=== PATIENT | male | born 1945 | race Caucasian/White ===

== ENCOUNTER 2016-07-23 03:41 | Inpatient (IN) | payer OTHER, MEDICARE ==
[~2016-07-23] VITALS: Ht 175.3 cm; Wt 65.3 kg
--- NOTE | 2016-07-23 09:12 | Admission Core Measures ---
Admission Meds I reviewed the following Meds: Current Medications Sig/Anna Start time Last Medication Dose Stop Time Status Admin Acetaminophen 975 MG ONCE 07/23 0000 NR (Tylenol) 07/23 2358 Cefazolin Sodium 2,000 MG ONCE 07/23 NR (Kefzol-Ancef Inj) 07/23 2358 Oxycodone HCl 10 MG ONCE 07/23 0000 NR (Roxicodone) 07/23 2358 Acute Coronary Syndrome Inclusion Criteria ACS Diagnosis No Inpatient Core Measures LDL Reminder: If No, please order W/I first 24hr of stay Congestive Heart Failure Inclusion Criteria CHF Diagnosis No Cerebrovascular accident Inclusion Criteria CVA/TIA Diagnosis No Inpatient Core Measures Bedside Swallow Eval Reminder: If BSE failed, place ST order Antithrombotic Reminder: Order Antithrombotic Medication by end of day 2 Antithrombotic Reminder: Document Reason Antithrombotic Not ordered by end of day 2 AFIB/Flutter Reminder: If Present, add to problem list AFIB/Flutter Reminder: Order Anticoag Medication for pts with AFIB/Flutter Atherosclerosis Reminder: If Present, add to problem list LDL Reminder: If No, please order W/I first 24hr of stay PT Order Reminder: If No, please order Venous thromboembolism Inpatient Core Measures VTE Risk Factors: Age > 40, Surgery [facility] prophylaxis d/t No contraindications No VTE Pharm Prophylaxis d/t No contraindications Inclusion Criteria - Per Current guidelines, there needs to be overlap - treatment for the first 5 days of Warfarin therapy. - Parenteral Anticoagulation (IV or SC) needs to be - given along with Warfarin therapy. VTE Diagnosis No VTE Type NONE VTE Confirmed by (Test) NONE Problem List As ranked by this Provider includes Assessment & Plan 1. Status post total hip replacement, right
--- NOTE | 2016-07-23 09:15 | Surg Short-stay <48hrs Dis Sum ---
Visit Information Visit Dates Admission Date: 07/23/16 Discharge Date: 07/23/16 Surgical Short Stay DC Summary Admission Diagnosis: Hip pain Final Diagnosis: s/p R THR Procedure(s): R THR - see operative report Summary/Significant Findings: Pt underwent a right thr by Dr Becerra on 07/23. He tolerated the procedure well and was brought to the PACU in stable condition. He was able to void spontaneously, his pain was well controlled with oral pain medication and he was working with PT. He was cleared by PT for discharge. Condition at Discharge: stable Discharge Disposition: home or self care Discharge instructions provided to patient/family: Yes Post discharge follow-up plan: Keep scheduled appointment with Dr Becerra. Call sooner if needed.
[2016-07-23] MEDS ORDERED: DILAUDID2 M1 PO (09:17)
[2016-07-23] MEDS ORDERED: ASPIRIN EC325 M2 PO (09:17)
[2016-07-23] MEDS ORDERED: COLACE100 M1 PO (09:17)
[2016-07-23] MEDS ORDERED: MS CONTIN15 M2 PO (09:17)
[2016-07-23] MEDS ORDERED: MIRALAX17 G1 PO (09:17)
--- NOTE | 2016-07-23 09:19 | Patient Discharge Instructions ---
Discharge Instructions General Discharge Information You were seen/treated for: Hip pain You had these procedures: Total hip replacement Watch for these problems: temp>101, increased redness or drainage of wounds, inability to bear weight No bath, but you may shower: Yes Other wound care: Keep incision clean and dry. May shower, no bathing Diet Continue normal diet: Yes Activity Activity Self Limited: Yes Activity Limited to: Weight bear as tolerated Acute Coronary Syndrome Inclusion Criteria At DC or during hospital stay patient has or had the following: ACS DIAGNOSIS No Discharge Core Measures Meds if any: Prescribed or Continued at Discharge Meds if any: NOT Prescribed or Continued at Discharge Congestive Heart Failure Inclusion Criteria At DC or during hospital stay patient has or had the following: CHF DIAGNOSIS No Discharge Core Measures Meds if any: Prescribed or Continued at Discharge Meds if any: NOT Prescribed or Continued at Discharge Cerebrovascular accident Inclusion Criteria At DC or during hospital stay patient has or had the following: CVA/TIA Diagnosis No Discharge Core Measures Meds if any: Prescribed or Continued at Discharge Meds if any: NOT Prescribed or Continued at Discharge Venous thromboembolism Inclusion Criteria VTE Diagnosis No VTE Type NONE VTE Confirmed by (Test) NONE Discharge Core Measures - Per Current guidelines, there needs to be overlap - treatment for the first 5 days of Warfarin therapy. - If discharged on Warfarin prior to 5 days of - overlap therapy, the patient will need to be - assessed for post discharge needs including - *Post discharge parental anticoagulation - *Warfarin and/or parental anticoagulation education - *Follow up date to check INR post discharge At least 5 days overlap therapy as Inpatient No Meds if any: Prescribed or Continued at Discharge Note: Overlap Therapy is Warfarin and Anticoagulant Meds if any: NOT Prescribed or Continued at Discharge
--- NOTE | 2016-07-23 10:00 | RADIOLOGY REPORT ---
EXAMINATION: XR HIP, RIGHT CLINICAL INFORMATION: Status post right hip replacement. COMPARISON: None TECHNIQUE: Portable AP and crosstable lateral views of the right hip. FINDINGS: A total hip hip replacement hardware is in place and in satisfactory position. No evidence of associated osseous fracture. Expected postsurgical soft tissue edema and air are noted in the right gluteal region and proximal thigh. IMPRESSION: Expected postsurgical changes of right total hip arthroplasty with the hardware in the satisfactory position.
[2016-07-23 11:33] VITALS: BP 122/68
--- NOTE | 2016-07-23 11:41 | NUR ---
PT ARRIVED TO FLOOR AT 1105. AT BEDSIDE. PT AMBULATED WITH PT BUT RIGHT LEG STILL NUMB. PT SITTING IN CHAIR, DENIES ANY PAIN. RESINT COMFORTABLY. CHAIR ALARM ON, CALL LUCAS WITHIN REACH.
--- NOTE | 2016-07-23 13:20 | PN- Orthopedic ---
Subjective Subjective: Postop check Pt is now s/p R anterior total hip replacement. He expresses no major complaints. He experienced some residual LE numbness upon arrival to the [facility] floor, but this has since resolved. Otherwise pain is well controlled and he is tolerating po. No void as of yet. Denies DAVALOS, dizziness, CP, SOB. Objective Vital Signs and I&Os Vital Signs Date Time Temp Pulse Resp B/P B/P Pulse O2 O2 Flow FiO2 Mean Ox Delivery Rate 07/23 1133 97.2 63 18 122/68 99 Room Air Intake & Output 07/23 1600 07/23 0800 07/23 0000 07/22 1600 07/22 0800 07/22 0000 Intake Total Output Total Balance Patient 144 lb Weight Physical Exam: Gen.: Patient is awake and alert. He is sitting in the chair. No acute distress. Cardiac: Regular Pulmonary: Clear to auscultation bilaterally Extremities: The right anterior hip dressing is clean, dry, and intact. There is mild periincisional swelling, within expected limits. The thigh is soft and there is no ecchymosis or signs of hematoma. Lower extremity sensation is intact from the thighs down to the toes bilaterally. Strength of dorsiflexion and plantar flexion are 5 out of 5 bilaterally. No significant distal edema or calf tenderness are appreciated. Assessment/Plan Assessment/Plan Patient is a 71-year-old male who is now postoperative day #0 status post right anterior total hip replacement. He remains stable from a surgical standpoint Plan: -PT for mobilization. WBAT with rolling walker. Patient is awaiting evaluation for stairs. -Pain control with morphine or Po dilaudid. -Heplock IV after void. -Colace and miralax for bowel regimen. -ASA 325 bid for DVT ppx. Alps and Reyes's as well. -Ancef x 2 doses for prophylaxis. -Await void. -Okay to discharge home when cleared by PT and after void. Core Measures/Miscellaneous Venous Thromboembolism VTE Risk Factors: Age > 40, Surgery VTE Contraindications: No Contraindications VTE Diagnosis: No VTE Type: NONE VTE Confirmed by (Test): NONE Beta Stef Is Beta Stef a Home Med? No Antibiotics Is Patient on Antibiotics? Yes If Yes: prophylaxis
[2016-07-23 14:37] VITALS: BP 118/70
--- NOTE | 2016-07-23 16:49 | Operative Report ---
Operative/Inv Procedure Report Surgery Date: 07/23/16 Name of Procedure: Right total hip replacement Pre-Operative Diagnosis: Primary right hip DJD Post-Operative Diagnosis: Same Estimated Blood Loss: 250 Surgeon/[employer] Director: FARHAN DIXON,DORY Morrison Anesthesia: block Operative/Procedure Note Note: Description of Procedure: The patient was taken to the operating room and positively identified. After induction of spinal anesthesia and administration of appropriate pre-operative antibiotics, the patient was positioned supine on the operating room table and all bony prominences were well padded. After performing a surgical timeout, the right lower extremity was prepped and draped in the usual sterile fashion. A direct anterior approach was made to the right hip. The incision was carried sharply through superficial soft tissues to the level of the fascia. Meticulous hemostasis was maintained with Bovie electocautery. The fascia over the tensor fascia lazaro muscle was opened sharply and the interval between the TFL and the sartorius was entered bluntly taking care to stay lateral to the lateral femoral cutaneous nerve. Retractors were placed around the femoral neck and the pericapsular fat was identified. The ascending branches of the lateral femoral circumflex vessels were identified and carefully coagulated. The pericapsular fat and anterior capsule were then resected. A napkin ring osteotomy was performed and the femoral head was removed without difficulty. Attention was then turned to the acetabulum. After appropriate placement of retractors, the acetabulum was exposed. Soft tissue was cleaned from the acetabular margin and notch. Overhanging osteophytes were removed and the teardrop was exposed. The acetabulum was then sequentially reamed to accept a 58 mm [place] Tritanium hemispherical solid back shell. This was impacted into place in the appropriate position and fitted with a 36 mm Trident X3 zero degree polyethylene insert. Attention was then turned to the femur. After performing the appropriate ligament releases, the proximal femur was exposed. It was then sequentially broached to accept a size 6 [place] Anato stem. This was trialed for leg length and stability. The trial component was removed and the final component was impacted into place. The trunnion was carefully cleaned and fit with a 36 mm, + 2.5 Biolox delta ceramic femoral head. The hip was reduced and put through a full range of motion and found to be stable. The articular space was then irrigated with sterile saline. The periarticular soft tissues were infilitrated with Marcaine. The fascial layer was closed with interrupted #1 vicryl suture and the skin was re-approximated with interrupted 2 -0 vicryl. The skin was closed with a running 3-0 V-Lock suture. Steri-strips and a sterile dressing were applied. The patient was awakened and taken to the recovery room in satisfactory condition.
== END 2016-07-23 15:17 | disposition home health service (06) | DRG 470 ==
LOC: SDA 03:41 → ENRESERV 09:45 → 2NB 10:51 → ENPENDDIS 13:37 → 2NB 15:17
PROVIDERS: ADMIT Orthopaedic Surgery
PROC: 0SR904A Replacement of Right Hip Joint with Ceramic on Polyethylene Synthetic Substitute, Uncemented, Open Approach (ICD-10-PCS; principal; 2016-07-23)
DX: M16.11 Unilateral primary osteoarthritis, right hip (principal); K22.70 Barrett's esophagus without dysplasia; K21.9 Gastro-esophageal reflux disease without esophagitis
CPT/HCPCS: 2NBP; 73502-RT; 88304; 97110-GO; 97116-GO; 97161-GP; 97530-GO; J0690; J0735; J7042

== ENCOUNTER 2016-09-26 01:59 | Inpatient (IN) | payer OTHER, MEDICARE ==
[~2016-09-26] VITALS: Ht 172.7 cm; Wt 65.8 kg
[~2016-09-26 01:59] MED LIST: ASPIRIN EC325 M2 PO; COLACE100 M1 PO; DILAUDID2 M1 PO; MIRALAX17 G1 PO; MS CONTIN15 M2 PO
--- NOTE | 2016-09-26 07:20 | Admission Core Measures ---
Admission Meds I reviewed the following Meds: Current Medications Sig/Anna Start time Last Medication Dose Stop Time Status Admin Acetaminophen 975 MG ONCE 09/26 0000 NR (Tylenol) 09/26 2358 Cefazolin Sodium 2,000 MG ONCE 09/26 NR (Kefzol-Ancef Inj) 09/26 2358 Oxycodone HCl 10 MG ONCE 09/26 0000 NR (Roxicodone) 09/26 2358 Acute Coronary Syndrome Inclusion Criteria ACS Diagnosis No Inpatient Core Measures LDL Reminder: If No, please order W/I first 24hr of stay Congestive Heart Failure Inclusion Criteria CHF Diagnosis No Cerebrovascular accident Inclusion Criteria CVA/TIA Diagnosis No Inpatient Core Measures Bedside Swallow Eval Reminder: If BSE failed, place ST order Antithrombotic Reminder: Order Antithrombotic Medication by end of day 2 Antithrombotic Reminder: Document Reason Antithrombotic Not ordered by end of day 2 AFIB/Flutter Reminder: If Present, add to problem list AFIB/Flutter Reminder: Order Anticoag Medication for pts with AFIB/Flutter Atherosclerosis Reminder: If Present, add to problem list LDL Reminder: If No, please order W/I first 24hr of stay PT Order Reminder: If No, please order Venous thromboembolism Inpatient Core Measures VTE Risk Factors: [facility] prophylaxis d/t No contraindications No VTE Pharm Prophylaxis d/t No contraindications Inclusion Criteria - Per Current guidelines, there needs to be overlap - treatment for the first 5 days of Warfarin therapy. - Parenteral Anticoagulation (IV or SC) needs to be - given along with Warfarin therapy. VTE Diagnosis No VTE Type NONE VTE Confirmed by (Test) NONE Problem List As ranked by this Provider includes Assessment & Plan 1. Primary osteoarthritis of left hip HOME MEDS Home Med List Aspirin (Ecotrin*) 325 MG TABLET. 1 TAB PO DAILY PROPHO (Reported)
--- NOTE | 2016-09-26 10:16 | Surg Short-stay <48hrs Dis Sum ---
Visit Information Visit Dates Admission Date: 09/26/16 Discharge Date: 09/26/16 Surgical Short Stay DC Summary Admission Diagnosis: Primary unilateral osteoarthritis, left hip Final Diagnosis: same, s/p Total hip replacement, left Procedure(s): total hip replacement, left Summary/Significant Findings: Patient was admitted to the hospital for an elective total joint replacement. The procedure was tolerated well and patient was transferred to a general surgical floor. Diet was advanced and tolerated, and the patient voided spontaneously. The patient was evaluated and treated by physical therapy. At the time of hospital discharge, the vital signs were stable, neurovascular status was intact, and pain was controlled with the use of oral pain medications Condition at Discharge: stable Discharge Disposition: home health services Discharge instructions provided to patient/family: Yes Post discharge follow-up plan: Follow up with Dr. Becerra in 6 weeks from date of surgery. Please call his office to arrange and/or confirm this appointment.
[2016-09-26] MEDS ORDERED: ASPIRIN EC325 M2 PO (10:19)
[2016-09-26] MEDS ORDERED: PROTONIX20 M1 PO (10:19)
[2016-09-26] MEDS ORDERED: DILAUDID2 M1 PO (10:19)
[2016-09-26] MEDS ORDERED: MS CONTIN15 M2 PO (10:19)
[2016-09-26] MEDS ORDERED: COLACE100 M1 PO (10:19)
[2016-09-26] MEDS ORDERED: MIRALAX17 G1 PO (10:19)
--- NOTE | 2016-09-26 10:23 | Patient Discharge Instructions ---
Discharge Instructions General Discharge Information You were seen/treated for: Left hip pain You had these procedures: Total hip replacement, LEFT Watch for these problems: Increasing pain despite the use of pain medication Increasing redness, warmth or swelling Drainage of any type from incision Inability to bear weight on operative leg Persistent nausea and vomiting Fever greater than 101.5 degrees No bath, but you may shower: Yes Other wound care: Please keep wound clean and dry. No ointments or lotions of any type on or near incision at any time. No exceptions. Your dressing will be changed by your nurse on the second day after your surgery. Daily dry dressing changes are recommended each day thereafter. Do not soak your wound in a bath at any time until otherwise indicated by Dr. Becerra. You may shower, please dry wound immediately after shower with a clean towel. Special Instructions: Aspirin: You are taking this medication to help prevent blood clot formation. Please take with food to protect your stomach lining. Please take as directed. Protonix: Take this daily to protect your stomach lining while taking aspirin. Constipation: Pain medication can cause constipation. Dr. Becerra has recommended that you take Colace and miralax each day. You may discontinue this medication if you develop loose stool or diarrhea. If you wish to continue this medication, it is available over the counter. If you are unable to move your bowels after several days, if you are unable to pass gas and are developing bloating, nausea, or vomiting as a result, please contact your doctor. Diet Continue normal diet: Yes Activity Activity Limited to: Weight bear as tolerated Additional ACTIVITY Info: use assistive devices as needed Acute Coronary Syndrome Inclusion Criteria At DC or during hospital stay patient has or had the following: ACS DIAGNOSIS No Discharge Core Measures Meds if any: Prescribed or Continued at Discharge Meds if any: NOT Prescribed or Continued at Discharge Congestive Heart Failure Inclusion Criteria At DC or during hospital stay patient has or had the following: CHF DIAGNOSIS No Discharge Core Measures Meds if any: Prescribed or Continued at Discharge Meds if any: NOT Prescribed or Continued at Discharge Cerebrovascular accident Inclusion Criteria At DC or during hospital stay patient has or had the following: CVA/TIA Diagnosis No Discharge Core Measures Meds if any: Prescribed or Continued at Discharge Meds if any: NOT Prescribed or Continued at Discharge Venous thromboembolism Inclusion Criteria VTE Diagnosis No VTE Type NONE VTE Confirmed by (Test) NONE Discharge Core Measures - Per Current guidelines, there needs to be overlap - treatment for the first 5 days of Warfarin therapy. - If discharged on Warfarin prior to 5 days of - overlap therapy, the patient will need to be - assessed for post discharge needs including - *Post discharge parental anticoagulation - *Warfarin and/or parental anticoagulation education - *Follow up date to check INR post discharge At least 5 days overlap therapy as Inpatient No Meds if any: Prescribed or Continued at Discharge Note: Overlap Therapy is Warfarin and Anticoagulant Meds if any: NOT Prescribed or Continued at Discharge
--- NOTE | 2016-09-26 10:46 | RADIOLOGY REPORT ---
EXAMINATION: XR HIP, LEFT CLINICAL INFORMATION: Status post left hip replacement. COMPARISON: No relevant prior imaging available. TECHNIQUE: Two views of the left hip. FINDINGS: There are recent postoperative changes of a total left hip arthroplasty. Metallic components are intact and there is no dislocation. No evidence of periprosthetic fracture. There is soft tissue gas and swelling related to recent surgery. Visualized portions of the left hemipelvis reveal no abnormal finding. IMPRESSION: Expected postoperative changes of a left total hip arthroplasty. Otherwise no abnormal finding.
[2016-09-26 13:48] VITALS: BP 110/70
--- NOTE | 2016-09-26 13:50 | NUR ---
ARRIVED TO FLOOR VIA STRETCHER. A & O X 3. ON RA. VSS. +CMS. DENIES PAIN. DSG INTACT TO LEFT HIP. ORIENTED TO CALL SYSTEM.
--- NOTE | 2016-09-26 15:10 | PN- Orthopedic ---
Subjective Subjective: POST-OP NOTE: No complaints. Reports pain controlled. Tolerating diet. No nausea. Evaluated and cleared for home by PT. Denies dizziness. No shortness of breath. No chest pains. Voided several times post-op. Objective Vital Signs and I&Os Vital Signs Date Time Temp Pulse Resp B/P B/P Pulse O2 O2 Flow FiO2 Mean Ox Delivery Rate 09/26 1348 98.1 70 16 110/70 97 Room Air Intake & Output 09/26 1600 09/26 0800 09/26 0000 09/25 1600 09/25 0800 09/25 0000 Intake Total 240 Output Total 300 Balance -60 Intake, Oral 240 Output, Urine 300 Patient 145 lb Weight Weight Reported by Patient Measurement Method Physical Exam: General - alert & oriented x 3. comfortable. no acute distress. Lungs - clear bilaterally. no w/r/r. Cardiac - s1s2. reg. Abdomen - soft. nontender. Extremities - warm bilaterally. no c/c/e. left hip dressing c/d/i. no hematoma. no drains. nvi. calves soft and nontender b/l. Current Medications: Current Medications Sig/Anna Start time Last Medication Dose Route Stop Time Status Admin Acetaminophen 650 MG Q4P PRN 09/26 1345 AC PO Acetaminophen 0 .STK-MED ONE 09/26 0720 DC PO Acetaminophen 975 MG ONCE 09/26 0000 DC PO 09/26 2359 Aspirin 325 MG BID 09/26 2200 AC PO Cefazolin Sodium 2 GM IQ8 09/26 1600 AC N/A 1 UNIT IV 09/27 0029 Cefazolin Sodium 2,000 MG ONCE 09/26 0000 DC IV 09/26 2359 Dextrose/Sodium 1,000 ML .[id number] 09/26 1345 AC 09/26 Chloride IV 1434 Docusate Sodium 100 MG BID 09/26 2200 AC PO Hydromorphone HCl 2 MG Q4P PRN 09/26 1345 AC PO Hydromorphone HCl 4 MG Q4P PRN 09/26 1345 AC PO Ketorolac 15 MG Q8P PRN 09/26 1345 AC Tromethamine IV 09/29 1334 Morphine Sulfate 2 MG Q2P PRN 09/26 1345 AC IV Omeprazole 20 MG DAILY AC 09/27 0700 AC PO Ondansetron HCl 4 MG Q6P PRN 09/26 1345 AC IV Oxycodone HCl 0 .STK-MED ONE 09/26 0721 DC PO Oxycodone HCl 10 MG ONCE 09/26 0000 DC PO 09/26 2359 Polyethylene Glycol 17 GM DAILY 09/27 1000 AC PO Promethazine HCl 12.5 MG Q6P PRN 09/26 1345 AC IV 10/03 1014 Assessment/Plan Assessment/Plan This 71 year old male is POD#0 s/p left total hip replacement for primary osteoarthritis advance diet as tolerated pain control as directed, as needed asa bid cleared by PT for home adams-operative ancef he has voided several times post-operatively d/c home with services today will d/w Core Measures/Miscellaneous Venous Thromboembolism VTE Risk Factors: Age > 40, Surgery VTE Contraindications: No Contraindications VTE Diagnosis: No VTE Type: NONE VTE Confirmed by (Test): NONE Beta Stef Is Beta Stef a Home Med? No Antibiotics Is Patient on Antibiotics? Yes If Yes: prophylaxis
--- NOTE | 2016-09-26 17:51 | Operative Report ---
Operative/Inv Procedure Report Surgery Date: 09/26/16 Name of Procedure: Left total hip replacement Pre-Operative Diagnosis: Primary left hip DJD Post-Operative Diagnosis: Same Estimated Blood Loss: 250 Surgeon/[employer] Operator: FARHAN DIXON,DORY Morrison Anesthesia: block Operative/Procedure Note Note: Description of Procedure: The patient was taken to the operating room and positively identified. After induction of spinal anesthesia and administration of appropriate pre-operative antibiotics, the patient was positioned supine on the operating room table and all bony prominences were well padded. After performing a surgical timeout, the left lower extremity was prepped and draped in the usual sterile fashion. A direct anterior approach was made to the left hip. The incision was carried sharply through superficial soft tissues to the level of the fascia. Meticulous hemostasis was maintained with Bovie electocautery. The fascia over the tensor fascia lazaro muscle was opened sharply and the interval between the TFL and the sartorius was entered bluntly taking care to stay lateral to the lateral femoral cutaneous nerve. Retractors were placed around the femoral neck and the pericapsular fat was identified. The ascending branches of the lateral femoral circumflex vessels were identified and carefully coagulated. The pericapsular fat and anterior capsule were then resected. A napkin ring osteotomy was performed and the femoral head was removed without difficulty. Attention was then turned to the acetabulum. After appropriate placement of retractors, the acetabulum was exposed. Soft tissue was cleaned from the acetabular margin and notch. Overhanging osteophytes were removed and the teardrop was exposed. The acetabulum was then sequentially reamed to accept a 60 mm [place] Tritanium hemispherical solid back shell. This was impacted into place in the appropriate position and fitted with a 36 mm Trident X3 zero degree polyethylene insert. Attention was then turned to the femur. After performing the appropriate ligament releases, the proximal femur was exposed. It was then sequentially broached to accept a size 6 [place] Anato stem. This was trialed for leg length and stability. The trial component was removed and the final component was impacted into place. The trunnion was carefully cleaned and fit with a 36 mm, + 0 Biolox delta ceramic femoral head. The hip was reduced and put through a full range of motion and found to be stable. The articular space was then irrigated with sterile saline. The periarticular soft tissues were infilitrated with Marcaine. The fascial layer was closed with interrupted #1 vicryl suture and the skin was re-approximated with interrupted 2 -0 vicryl. The skin was closed with a running 3-0 V-Lock suture. Steri-strips and a sterile dressing were applied. The patient was awakened and taken to the recovery room in satisfactory condition.
== END 2016-09-26 16:12 | disposition home health service (06) | DRG 470 ==
LOC: SDA 01:59 → ENRESERV 12:40 → ENTRNSPT 13:02 → EDTRNSPTSTS 13:27 → 2NA 13:28 → EDTRNSPT 13:31 → CMPTRNSPT 13:32 → 2NA 16:12
PROVIDERS: ADMIT Orthopaedic Surgery
PROC: 0SRB04A Replacement of Left Hip Joint with Ceramic on Polyethylene Synthetic Substitute, Uncemented, Open Approach (ICD-10-PCS; principal; 2016-09-26)
DX: M16.12 Unilateral primary osteoarthritis, left hip (principal)
CPT/HCPCS: 2NASP; 73502-LT; 97110-GO; 97116-GO; 97161-GP; 97530-GO; J0690; J0735; J2405; J2550; J7042